=== PATIENT | female | born 2000 | race Two or more races ===

== ENCOUNTER 2024-09-10 11:51 | Inpatient (IN) | payer OTHER ==
[~2024-09-10] VITALS: Ht 152.4 cm; Wt 73.0 kg
[2024-09-10 11:53] LABS: HEMATOCRIT 38.3 % (36.0-45.00); HEMOGLOBIN 12.9 g/dL (12.0-15.00); MEAN CELL VOLUME 80.6 fL (80.00-100.00); MEAN CORPUSCULAR HEMOGLOBIN 27.1 pg (27.00-32.0); MEAN CORPUSCULAR HGB CONC 33.7 g/dl (32.0-36.0); PLATELET COUNT 277 K/uL (150-450); RED BLOOD COUNT 4.75 M/uL (4.00-6.00); RED CELL DISTRIBUTION WIDTH 14.1 % (11.5-14.5)
[2024-09-10 12:06] LABS: URINE APPEARANCE Clear; URINE BILIRRUBIN Negative (NEGATIVE); URINE BLOOD Negative; URINE COLOR Yellow; URINE GLUCOSE Negative (NEGATIVE); URINE KETONE Trace (NEGATIVE); URINE LEUKOCYTE Negative; URINE NITRATE Negative; URINE PROTEIN Negative (NEGATIVE); URINE UROBILINOGEN 0.2 E.U./dl
[2024-09-10 12:10] LABS: URINE EPITHELIAL CELLS 3.9 uL (0.0-38.8); URINE WBC 4.7 uL (0.0-23.2)
[2024-09-10 12:22] LABS: INR < 0.93; PARTIAL THROMBOPLASTIN TIME 29.4 SECONDS (22.0-34.0); PROTHROMBIN TIME 10.2 SECONDS (9.0-11.5)
[2024-09-10 12:34] LABS: ALBUMIN 2.4 gm/dL (3.4-5.0); BILIRUBIN TOTAL 0.54 mg/dL (0.3-1.2); CALCIUM 8.9 mg/dL (8.5-10.1); CREATININE SERUM 0.52 mg/dL (0.55-1.02); GFR 144.87; GLOBULINA 3.8 G/DL (2.4-3.5); POTASSIUM 3.95 mEq/L (3.5-5.1); TOTAL PROTEIN 6.2 gm/dL (6.4-8.2)
[2024-09-10] MEDS ORDERED: PRILOSEC OTC20 MG PO (14:08)
[2024-09-10] MEDS ORDERED: PROBIOTIC250 MG PO (14:08)
[2024-09-19] MEDS ORDERED: PRENATAL + DHA1 EAC1 PO (06:25)
[2024-09-19 06:26] VITALS: BP 124/82
[2024-09-19] MEDS ORDERED: OXYTOCIN 10 UNITS/ML VIAL ONE (07:15)
[2024-09-19] MEDS ORDERED: ERYTHROMYCIN BASE OPHT 1GM EACH TUBE OP ONE (07:15)
[2024-09-19] MEDS ORDERED: CEFAZOLIN SODIUM 1,000 MG VIAL ONE ×2 (07:25→13:28)
[2024-09-19] MEDS ORDERED: RINGERS SOLUTION,LACTATED 1,000 ML IV SCH (09:00)
[2024-09-19] MEDS ORDERED: MEPERIDINE HCL/PF 50 MG/ML VIAL IM PRN (09:00)
[2024-09-19] MEDS ORDERED: PROMETHAZINE HCL 50 MG/ML AMPUL IM PRN (09:00)
[2024-09-19] MEDS ORDERED: MORPHINE SULFATE 4 MG/ML VIAL IV ONE ×2 (10:15→11:15)
[2024-09-19] MEDS ORDERED: PROMETHAZINE HCL 50 MG/ML AMPUL IM ONE (13:27)
[2024-09-19] MEDS ORDERED: CEFAZOLIN SODIUM 1,000 MG VIAL IV SCH (14:00)
[2024-09-19 14:57] VITALS: BP 141/85
[2024-09-20] MEDS ORDERED: DIPHENHYDRAMINE HCL 50 MG CAPSULE PO PRN
[2024-09-20 00:14] VITALS: BP 135/82
[2024-09-20 01:14] LABS: HEMATOCRIT 38.3 % (36.0-45.00); HEMOGLOBIN 12.8 g/dL (12.0-15.00); MEAN CELL VOLUME 80.6 fL (80.00-100.00); MEAN CORPUSCULAR HEMOGLOBIN 26.8 pg (27.00-32.0); MEAN CORPUSCULAR HGB CONC 33.3 g/dl (32.0-36.0); PLATELET COUNT 241 K/uL (150-450); RED BLOOD COUNT 4.75 M/uL (4.00-6.00); RED CELL DISTRIBUTION WIDTH 14.4 % (11.5-14.5)
[2024-09-20 08:23] VITALS: BP 146/87
[2024-09-20] MEDS ORDERED: DOCUSATE CALCIUM 240 MG CAPSULE PO PRN (08:45)
[2024-09-20] MEDS ORDERED: OxyCODONE HCL/APAP UD (PERCOCET) PO PRN (08:45)
[2024-09-20] MEDS ORDERED: PNV,CALCIUM 72/IRON/FOLIC ACID 1 TAB TABLET PO SCH (09:00)
[2024-09-20] MEDS ORDERED: IBUprofen 600 MG TABLET PO PRN (11:15)
[2024-09-20 13:07] VITALS: BP 122/83
[2024-09-20 17:19] VITALS: BP 131/81
[2024-09-20 23:52] VITALS: BP 121/83
[2024-09-21 16:01] VITALS: BP 125/86
[2024-09-22 00:30] VITALS: BP 132/86
[2024-09-22 08:00] VITALS: BP 119/75
[2024-09-22] MEDS ORDERED: IBUPROFEN800 MG PO (08:06)
[2024-09-22] MEDS ORDERED: ERYTHROMYCIN BASE OPHT 1GM EACH TUBE OP ONE (16:45)
[2024-09-22] MEDS ORDERED: OXYTOCIN 20 UNITS/1000ML RL PIGGYBAG IV ONE (16:45)
[2024-09-22] MEDS ORDERED: CEFAZOLIN SODIUM 1,000 MG VIAL IV SCH (16:45)
== END 2024-09-22 12:33 | disposition home or self-care (01) | DRG 788 ==
LOC: O/R 09-19 06:00 → OB/GYN 09-19 08:45
PROVIDERS: ADMIT Specialist; ATTEND Specialist
PROC: 4A1HXCZ Monitoring of Products of Conception, Cardiac Rate, External Approach (ICD-10-PCS; 2024-09-19)
PROC: 10D00Z1 Extraction of Products of Conception, Low, Open Approach (ICD-10-PCS; principal; 2024-09-19 08:45)
DX: O32.1XX0 Maternal care for breech presentation, not applicable or unspecified (principal); Z3A.39 39 weeks gestation of pregnancy; Z37.0 Single live birth